=== PATIENT | female | born 1955 | race Caucasian/White ===

== ENCOUNTER 2017-09-27 02:17 | Emergency (ER) | payer BC ==
[~2017-09-27] VITALS: Ht 162.6 cm; Wt 72.6 kg
[2017-09-27 02:17] VITALS: BP_SYST 156
[2017-09-27] MEDS ORDERED: NACL 0.9% 1,000 ML IV ONE (02:45)
[2017-09-27 03:17] LABS: BASOPHILS # (AUTO) 0.1 K/uL (0.0-0.2); BASOPHILS % (AUTO) 1.7 % (0.0-2.0); EOSINOPHILS # (AUTO) 0.2 K/uL (0.0-0.4); EOSINOPHILS % (AUTO) 3.2 % (0.0-4.0); HEMATOCRIT 39.5 % (36-48); HEMOGLOBIN 13.3 g/dL (12.0-16.0); LYMPHOCYTES # (AUTO) 1.6 K/uL (1.0-5.5); LYMPHOCYTES % (AUTO) 27.9 % (20.5-51.5); MEAN CORPUSCULAR HEMOGLOBIN 30 pg (27-31); MEAN CORPUSCULAR HGB CONC 34 % (32-36); MEAN CORPUSCULAR VOLUME 90 fL (79.0-98.0); MONOCYTES # (AUTO) 0.6 K/uL (0.0-1.0); MONOCYTES % (AUTO) 10.8 % (1.7-9.3); NEUTROPHILS # (AUTO) 3.3 K/uL (1.8-7.7); NEUTROPHILS % (AUTO) 56.4 % (40.0-70.0); PLATELET COUNT (AUTO) 181 K/uL (130-430); RED BLOOD CELL COUNT(AUTO) 4.42 MIL/uL (4.2-6.2); RED CELL DISTRIBUTION WIDTH 12.3 % (9.0-15.0); WHITE BLOOD COUNT (AUTO) 5.8 K/uL (4.8-10.8)
[2017-09-27 03:26] LABS: ANION GAP 6 (5-15); CALCIUM 8.5 mg/dL (8.4-11.0); CHLORIDE 105 mmol/L (98-107); CREATININE 0.76 mg/dL (0.55-1.30); GLUCOSE 136 mg/dL (70-99); POTASSIUM 3.8 mmol/L (3.5-5.1); SODIUM SERUM 138 mmol/L (136-145); UREA NITROGEN, BLOOD 24 mg/dL (8-21)
[2017-09-27 03:29] LABS: GFR AFRICAN AMERICAN 100 mL/min (>90)
[2017-09-27 03:35] LABS: ALANINE AMINOTRANSFERASE 67 U/L (12-78); ALBUMIN 3.6 g/dL (3.4-4.8); ASPARTATE AMINOTRANSFERASE 36 U/L (10-37); TOTAL BILIRUBIN 0.7 mg/dL (0.0-1.0)
[2017-09-27 03:55] VITALS: BP_SYST 144
== END 2017-09-27 03:55 | disposition home or self-care (01) ==
LOC: SED 02:17
DX: E86.0 Dehydration (principal); F41.9 Anxiety disorder, unspecified; F15.10 Other stimulant abuse, uncomplicated; F16.921 Hallucinogen use, unspecified with intoxication with delirium; F17.210 Nicotine dependence, cigarettes, uncomplicated
CPT/HCPCS: 36415; 80053; 84484; 85025; 93005; 96360; 99285; J7030

== ENCOUNTER 2020-04-04 16:02 | Emergency (ER) | payer BC, OTHER ==
[~2020-04-04] VITALS: Ht 172.7 cm; Wt 74.8 kg
--- NOTE | 2020-04-04 16:17 | NUR ---
NOEL TO ASSUME CARE, PT HERE FOR C/O SEIZURE. PT DENIES HX OF SEIZURES, DENIES MEDICAL PROBLEMS.
[2020-04-04 16:21] VITALS: BP_SYST 142
[2020-04-04 16:49] VITALS: BP_SYST 142
--- NOTE | 2020-04-04 16:50 | NUR ---
Patient does not wish to proceed with medical care recommended by [facility]. Patient given information related to possible complications, up to and including , which could occur as a result of leaving hospital at this time. Patient verbalizes understanding of risks involved leaving against medical advice. Patient has signed AMA form.
== END 2020-04-04 16:49 | disposition left against medical advice (07) ==
LOC: SED 16:02
DX: R55 Syncope and collapse (principal); F19.10 Other psychoactive substance abuse, uncomplicated
CPT/HCPCS: 99283

== ENCOUNTER 2022-04-17 15:49 | Inpatient (IN) | payer MEDICAID ==
[~2022-04-17] VITALS: Ht 165.1 cm; Wt 65.3 kg
[2022-04-17 15:57] VITALS: BP_SYST 186
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
--- NOTE | 2022-04-17 16:10 | NUR ---
MD DR ESPAÑA BEDSIDE
[2022-04-17] MEDS ORDERED: KETAMINE 30 MG/3 ML SYRINGE IM ONE ×2 (17:15)
[2022-04-17 17:47] LABS: ANION GAP 6 (5-15); CHLORIDE 103 mmol/L (98-107); CREATININE 0.85 mg/dL (0.55-1.30); GLUCOSE 103 mg/dL (70-99); UREA NITROGEN, BLOOD 19 mg/dL (8-21)
[2022-04-17 17:52] LABS: ALANINE AMINOTRANSFERASE 24 U/L (12-78); ALBUMIN 3.9 g/dL (3.4-4.8); ASPARTATE AMINOTRANSFERASE 21 U/L (10-37); TOTAL BILIRUBIN 0.8 mg/dL (0.0-1.0)
[2022-04-17 17:56] LABS: ACETAMINOPHEN < 1 ug/mL (1-30); ALCOHOL, BLOOD < 3 mg/dL (<10); C-REACTIVE PROTEIN QUANT < 0.2 mg/dL (0-0.5); GFR AFRICAN AMERICAN 88 mL/min (>90)
[2022-04-17 18:12] LABS: PROTHROMBIN TIME 10.2 SECS (9.5-12.5)
[2022-04-17 18:22] LABS: BARBITURATE, URINE NEGATIVE (NEG <=200); BENZODIAZEPINE, URINE NEGATIVE (NEG <=150); CANNABINOID, URINE POSITIVE (NEG <=50); COCAINE, URINE NEGATIVE (NEG <=150); METHAMPHETAMINES SCREEN,URINE POSITIVE (NEG <=500); OPIATE, URINE NEGATIVE (NEG <=100); PHENCYCLIDINE SCREEN,URINE POSITIVE (NEG <=25); UR TRICYCLIC ANTIDEPRESSANTS NEGATIVE (NEG <=300); URINE AMPHETAMINE POSITIVE (NEG <=500); URINE METHADONE NEGATIVE (NEG <=200); URINE OXYCODONE SCREEN NEGATIVE (NEG <=100); URINE PROPOXYPHENE SCREEN NEGATIVE (NEG <=300)
[2022-04-17] MEDS ORDERED: LORazepam 2 MG/ML VIAL IVP ONE (18:30)
[2022-04-17 18:32] LABS: BASOPHILS % (AUTO) 0.5 % (0.0-2.0); EOSINOPHILS # (AUTO) 0.1 K/uL (0.0-0.4); HEMATOCRIT 39.6 % (36-48); HEMOGLOBIN 13.4 g/dL (12.0-16.0); LYMPHOCYTES # (AUTO) 0.9 K/uL (1.0-5.5); LYMPHOCYTES % (AUTO) 10.8 % (20.5-51.5); MEAN CORPUSCULAR HEMOGLOBIN 30 pg (27-31); MEAN CORPUSCULAR HGB CONC 34 % (32-36); MEAN CORPUSCULAR VOLUME 89 fL (79.0-98.0); MONOCYTES # (AUTO) 0.5 K/uL (0.0-1.0); MONOCYTES % (AUTO) 6.1 % (1.7-9.3); NEUTROPHILS # (AUTO) 6.6 K/uL (1.8-7.7); NEUTROPHILS % (AUTO) 81.6 % (40.0-70.0); PLATELET COUNT (AUTO) 191 K/uL (130-430); RED BLOOD CELL COUNT(AUTO) 4.45 MIL/uL (4.2-6.2); RED CELL DISTRIBUTION WIDTH 13.2 % (9.0-15.0); WHITE BLOOD COUNT (AUTO) 8.1 K/uL (4.8-10.8)
--- NOTE | 2022-04-17 19:37 | NUR ---
REPORT GIVEN TO RENÉ RN, PT STABLE. VSS
[2022-04-17 19:42] LABS: ACETONE, SERUM NEGATIVE (NEGATIVE)
--- NOTE | 2022-04-17 22:13 | NUR ---
Patient resting quietly. No acute distress noted. Vital signs within normal range.
--- NOTE | 2022-04-18 00:29 | NUR ---
Patient resting quietly with eyes closed. No acute distress noted. Vital signs within normal range.
--- NOTE | 2022-04-18 03:30 | NUR ---
PATIENT IS AWAKE AND STATED SHE HAS PAIN TO HER IV SITE. IV CATHETER REMOVED INTACT AND DRESSING APPLIED, NO ACTIVE BLEEDING.
--- NOTE | 2022-04-18 06:15 | NUR ---
CALL TRANSFERRED TO CORAZON MERRITT FOR CLINICAL INFO. CORAZON MERRITT IS SPEAKING TO SHERI MCMULLEN SOLAR PROJECT COORDINATION SPECIALIST REGARDING PT STATUS. PENDING ADMISSION/TRANSFER.
--- NOTE | 2022-04-18 06:50 | NUR ---
REQUESTED FAX OF FACESHEET AND CLINICALS TO AUTH ADMIT. PT QUALIFIES FOR OBS PER MARIALUISA MCMULLEN MANGTERENCE. FAX : [phone]
--- NOTE | 2022-04-18 07:30 | NUR ---
RECEIVED PT FROM CORAZON MERRITT. PT IS AAOX3, LETHARGIC. NORMAL S12 NOTED. ON R/A. DENIES N/V/D/C. CORAZON MERRITT STATED PT HAS REMOVED IV ACCESS AND STATED SHE DOES NOT WANT IT. DENIES PAIN. SIDERAILS UP X2.
--- NOTE | 2022-04-18 07:34 | NUR ---
RAQUEL SWABBED AND SENT TO LAB
--- NOTE | 2022-04-18 07:44 | NUR ---
Admit bed requested Patient will be admitted to care of Dr. CORRALES. Admitted to TELEMETRY unit. Diagnosis ALOC Inpatient (Yes or No) YES Observation (Yes or No) NO Orientation concerns or request close to nursing station (Yes or No) NO Covid Status PENDING On vent or bipap NO Isolation requirements PENDING Needs a sitter NO From Home (Yes or if No enter name of facility) POSSIBLE HOMELESS Requires Dialysis (Yes or No) NO Med Rec Completed (Yes of No) PRACHI
[2022-04-18] MEDS ORDERED: D5/0.45 NS 1,000 ML IV ONE (07:45)
--- NOTE | 2022-04-18 11:50 | NUR ---
PT LETHARGIC BUT AAOX4. STATES NKA.
--- NOTE | 2022-04-18 11:55 | NUR ---
SINGE WINDER ACSW Hayley received a call from Petey Wolf who states she is patient's daughter. She requested information on patient's status and to be added as Next of Kin. ACSW Hayley attempted to meet with patient at bedside to confirm Adelina as her daughter and obtain permission to add her to Next of Kin. ACSW was unable to wake patient at this time. Second attempt will be made a later time. Print Washer will continue to be available as needed
[2022-04-18] MEDS ORDERED: D5/0.45 NS 1,000 ML IV SCH (12:00)
[2022-04-18] MEDS ORDERED: ONDANSETRON HCL 4 MG/2 ML VIAL IVP PRN (12:00)
[2022-04-18] MEDS ORDERED: LORazepam 2 MG/ML VIAL IVP PRN (12:00)
[2022-04-18 12:33] VITALS: BP_SYST 129
--- NOTE | 2022-04-18 13:20 | NUR ---
Patient will be admitted to care of CORAZON MYLES. Admitted to TELEMETRY unit. Will go to room 132A. Belongings list completed. Complete and up to date summary report printed. SBAR report to be given at bedside with opportunity for questions.
[2022-04-18 16:25] VITALS: BP_SYST 168
--- NOTE | 2022-04-18 16:30 | NUR ---
ST EVALUATION COMPLETED. ST TX NOT INDICATED AT THIS TIME. RECOMMEND PO DIET OF MECHANICAL SOFT AND THIN LIQUIDS. DISTANT SUPERVISION AND FULL ASPIRATION PRECAUTIONS.
--- NOTE | 2022-04-18 17:00 | NUR ---
Admitting called to update pt's emergency contact. Pt stated Shawna Smith, listed as pt's only emergency contact is . Pt agreed to add Petey Wolf [phone], daughter, as primary emergency contact.
--- NOTE | 2022-04-18 19:33 | NUR ---
CLOSING NOTE Pt VSS. No c/o of pain. Pt is lethargic but arousable and able to answer questions appropriately. Report given to CORAZON Nuñez. Instructed pt to call for assistance before OOB to the bathroom. Call light placed w/in reach.
--- NOTE | 2022-04-18 21:57 | NUR ---
AMA PT LEFT AMA, WAS VERY ADAMANT ABOUT LEAVING SAYING SHE "NEEDED TO GO" DESPITE RN'S EFFORTS TO GET HER TO STAY. IV REMOVED AND PT SIGNED AMA FORM. PT LEFT WITH TELE BOX, SECURITY CALLED TO SEE IF IT CAN BE RETRIEVED BUT PT ALREADY HAD LEFT. MACHINE PECAN GATHERER CALLED DAUGHTER Petey Wolf [phone] TO SEE IF SHE CAN BRING IT BACK. STATED THAT SHE WILL TRY TO BRING IT TONIGHT OR TOMORROW. GAME OPERATOR MADE AWARE. PAGEANTONI Nicole DR. AWAITING CALLBACK Addendum: 04/18/22 at 2240 by Savannah Riley RN TELE BOX WAS FOUND UNDER BLANKETS IN HOSPITAL BED
--- NOTE | 2022-04-18 22:55 | NUR ---
2ND PAGE FOR ANTONI URBAN
--- NOTE | 2022-04-18 23:07 | NUR ---
CALLBACK FROM ANTONI URBAN, INFORMED PT LEFT AMA
--- NOTE | 2022-04-19 08:45 | NUR ---
ADOBE DEVELOPER ACSW Hayley responded to a generated Hospice Executive Director referral from 04/19/2021 @16:35. Further review of notes depict patient left AMA.
== END 2022-04-18 22:05 | disposition left against medical advice (07) | DRG 812 ==
LOC: SED 15:49 → EDBD 15:49 → MERGE 04-18 07:37 → STU 04-18 07:37
PROVIDERS: ADMIT Preventive Medicine Preventive Medicine/Occupational Environmental Medicine; ATTEND Preventive Medicine Preventive Medicine/Occupational Environmental Medicine
DX: T50.911A Poisoning by multiple unspecified drugs, medicaments and biological substances, accidental (unintentional), initial encounter (principal); G92.8 Other toxic encephalopathy; E87.20 Acidosis, unspecified; R73.9 Hyperglycemia, unspecified; Z20.822 Contact with and (suspected) exposure to COVID-19; Y92.89 Other specified places as the place of occurrence of the external cause
CPT/HCPCS: 36415; 70450-TC; 71045; 76376; 80053; 80307; 82009; 82140; 82550; 83605; 83880; 84484; 85025; 85610-TC; 85730-TC; 86140; 87040; 92610-GN; 93005; 96361; 96372; 96374; 99285; G0378; G0480; G0481; G0482; J2060